=== PATIENT | female | born 1955 | race Caucasian/White ===

== ENCOUNTER 2025-06-19 12:57 | Outpatient (CLI) | payer MEDICARE, SELFPAY | END 2025-06-19 12:58 | disposition home or self-care (01) | LOC: AMB 06-22 17:09 | PROVIDERS: Visit Provider Internal Medicine | DX: R55 Syncope and collapse (principal); R53.1 Weakness; R42 Dizziness and giddiness | CPT/HCPCS: A0425; A0427 ==

== ENCOUNTER 2025-06-19 13:34 | Emergency (ER) | payer MEDICARE, SELFPAY ==
--- OUTSIDE RECORDS SUMMARY | 2018-08-19 03:31 | XMS_ITS | Continuity of Care Document ---
Author Organization [facility] Address [address] [address] [place] [address] Phone Care Team Providers Care Choreography Director Name Role Phone Dayanna Jones CRNA Unavailable Unavailable Allergies, Adverse Reactions, Alerts Substance Reaction Status Criticality No Known Allergies Active No Inform ation Medications Medication Instructions Dosage Effective Dates (start - stop) Status Comments liothyronine 5 mcg tablet take 2 tablet by oral route every day 10 MCG - Active levothyroxine 100 mcg tablet take 1 tablet by oral route every day 100 MCG - Active bupropion HCl SR 200 mg tablet,12 hr sustained-release take 1 tablet by oral route every day 200 MG - Active escitalopram 5 mg tablet take 1 tablet b y oral route every day 5 MG - Active escitalopram 10 mg tablet take 1 tablet by oral route every day 10 MG - Active Multiple Vitamins tablet take 1 tablet b y oral route every day with food - Active vitamin B complex capsule take 1 Capsule by Oral route every day 1 Capsule - Active Vitamin D3 400 unit capsule take 1 Table t by Oral route every day 1 Tablet - Active vitamin E 100 unit capsule take 1 Tablet by Oral route every day - Active Calcium Magnesium 500 mg calcium-250 mg tablet take 1 tablet by oral route every day - Active MiralaxBisacodylMagCit Colon Prep Use as directed - No Longer Active Procedures Procedure Date Colonoscopy Flex; Dx (sep Pro) 19 Advance Directives Directive Yes / No Effective Date File Name No Information Encounters Encounter Description Practice Location Reason(s) For Visit Diagnoses Date Provider Providers Copied on Encounter [facility], [address] [address], [place], [id number], tel:[phone] [facility] No Information 9 Robert ASHLEY Dayanna. [address] [facility], [facility] [address], [place], [id number], [place]. tel:[phone] [facility], [address] [address], [place], [id number], [place] tel:[phone] [facility] Screening ColonoscopyMel anosis coliEncounter for screening for malignant neoplasm of colon 9 No Information Referring Provider: Sbaine Kahn [employer], [facility], [place], [address]. tel:[phone] [facility], [address] [address], [place], [id number], [place] tel:[phone] [facility] No Information 8 Rafi Napoles. [address] [facility] [address], [place], [id number], . tel:[phone] Family History Family Member Type Diagnosis Age At Onset Father Problem (finding) Cancer, unknown Father Problem (finding) Mother Problem (finding) Sister Problem (finding) Alive and well Brother Problem (finding) Brother Problem (finding) Alive and well Payers Payer name Insurance type Covered democrat ID Authoriza tion(s) No Information Social History Type Description Quantity Date Captured Comments Sex Female Smoking Status No Information Chief Complaint And Reason For Visit No Information Reason For Referral Reason For Referral No Information History Of Present Illness Encounter Date Complaint History Of Prese nt Illness No Information Functional Status Date Functional Assessmen t No Information Instructions Date Instruction Additional Infor raul Colon Cancer Prevention Related to Screening Colonoscopy Assessments Type Assessment Date No Information Patient Care Teams Name Effective Dates (start - stop) Status Members No Information
--- OUTSIDE RECORDS SUMMARY | 2025-06-19 13:37 | XMS_ITS | Clinical Summary ---
Author Organization [place] Address [facility] [place] [address] Care Team Providers Care Electrical Construction Project Manager Name Role Phone Sabine Kahn NP Primary Care Provider [phone] Sabine Kahn FREIGHT RECEIVER Unavailable [phone] Malgorzata Valero FREIGHT RECEIVER Unavailable [phone] Allergies No known active allergies Medications MedicationSigDispense QuantityRefillsLast FilledStart DateEnd DateStatus [place]-3 Fatty Acids (FISH OIL CONCENTRATE) 1000 MG CAPS Take 1 tablet by mouth daily05/16/2018Active acetylcysteine (NAC) 600 mg cap capsule Take 1,200 mg by mouth daily05/16/2018Active multivitamin therapeutic (THERAGRAN) tablet Take 1 tablet by mouth daily05/16/2018Active VITAMIN B COMPLEX ORAL Take 1 tablet by mouth daily05/16/2018Active Wvyqltw-Rzqkovlqt-Asetrsj D (CALCIUM MAGNESIUM PO) Take 2 capsules by mouth daily 1000 mg calcium 500 mg MagnesiumActive IBANdronate (BONIVA) 150 MG tablet Indications:Osteopenia of left hipTake 1 tablet (150 mg) by mouth every 30 days. 3 tablet 5Active escitalopram (LEXAPRO) 10 MG tablet Indications:Mild episode of recurrent major depressive disorderTake 1.5 tablets (15 mg) by mouth daily. 135 tablet 5Active buPROPion (WELLBUTRIN SR) 100 MG 12 hr tablet Indications:Mild episode of recurrent major depressive disorderTake 1 tablet (100 mg) by mouth 2 times daily. 180 tablet 5Active liothyronine (CYTOMEL) 5 MCG tablet Indications:Mild episode of recurrent major depressive disorderTake 2 tablets (10 mcg) by mouth daily. DUE FOR LABS 180 tablet 5Active levothyroxine (SYNTHROID/LEVOTHROID) 100 MCG tablet Indications:Hypothyroidism, unspecified typeTake one tablet 5 days a week and skip 2 days per week (Sunday and Sunday) 60 tablet 5Active Active Problems ProblemNoted DateDiagnosed DateClosed fracture of right distal zgofsd6202/02/2023 Osteopenia of multiple sites02/02/2023Major depressive disorder, recurrent wrystrj5605/16/2018 Overview (12/31/2020): Overview: [facility] Dysthymic fkxsiszb45/21/2007 Overview (12/31/2020): Overview: Wellbutrin, Lexapro and supplements: SAME, NAC, and roseola Tried: Fluoxetine- ineffective, citalopram- lost effectiveness, paroxetine- ineffective Last Assessment & Plan: Wellbutrin, Lexapro and supplements: SAME, NAC, and roseola Dysthymia. She feels that she is well controlled currently. It took her years to get to the right dosage. No hospitalizations. No SI or HI. She is already set up with counseling. Last year was unemployed most of the year. Moved here ( family in the area) and has been able to get a job. Yegwzhrcqntcxq20/08/2004 Overview (12/31/2020): Overview: Dx about 1979. Symptoms controlled only with combination L thyroxine and Cytomel. Last Assessment & Plan: Dx about 1979. Symptoms controlled only with combination L thyroxine and Cytomel. Has not changed her thyroid dosing in 2 years. Lab Results Component Value Date TSH 0.31 08/19/2013 Overview: [facility] Resolved Problems ProblemNoted DateDiagnosed DateResolved DateCervical cancer ncaqqjegl28/31/2018 04/18/2021 Overview (02/04/2021): From visit on 11/21/17: History of abnormal pap tests? No 2007 NILM 2010 NILM 2018 NILM ,neg HPV 62 y.o. Plan: Cotesting 10/2020 Healthcare chalnwnxvsy38 Overview (02/04/2021): Last Assessment & Plan: Pap: 2011- no hx abn Mammo: 10/2013- category 1 Cholesterol: Not recently Glucose: Not recently Colonoscopy: 12/2011- normal and no increased risk Dexa: Done in the past Immunizations: Not sure. Will await old records. Diet: She is a vegetarian. She is careful with her diet. Fast food: Rarely, sugared beverages: None. Has an aversion to sugar as it makes her tired. Exercise: 3 times per week. Swims laps for 30 minutes. Inj muscle, fascia and tendon of triceps, left arm, init Overview (12/31/2020): Overview: 09/08/2013- slipped while hiking Last Assessment & Plan: 09/08/2013- slipped while hiking Slowly improving. Saw Rl Syed for this. Posterior subcapsular polar senile kgeunytl71 Encounters DateTypeDepartmentCare RbuvOhbyogyftqo03/04/2025MyC Refill M [address] [address] Malgorzata Valero NP Refill Ktxtjll5303/24/2025MyC Medical Advice M [address] [address] Cheryl Padilla MA from Last 3 Months Immunizations ImmunizationAdministration DatesNext DueCOVID-19 12+ (Pfizer)5COVID-19 Monovalent 18+ (Moderna)2COVID-19 Vaccine (Horacio)1Cholera, unspecified vonmighzixm87/01/1993DT (PEDS <7y)01/27/1993Flu, Unspecified 06/30/1998,05/05/1997,03/24/1996Influenza (High Dose) Trivalent,PF (Fluzone) 04/11/2024,03/17/2020Influenza (IIV3) PF03/28/2012,04/25/2011,04/01/2010, 03/18/2009,05/21/2007,05/29/2003Influenza (prior to 2023)04/27/2014Influenza Vaccine 65+ (Fluzone HD)04/10/2023,04/13/2022,04/11/2021Influenza Vaccine >6 months,quad, PF04/23/2017Influenza Vaccine, 6+MO IM (QUADRIVALENT W/PRESERVATIVES)03/27/2018Meningococcal (Menomune??)02/01/1994Pneumococcal 20 valent Conjugate (Prevnar 20)4Pneumococcal 23 phfxsy5409/09/2021, 03/24/1996Poliovirus, inactivated (IPV)06/17/1993TDAP (Adacel,Boostrix) 12/14/2014,09/06/2009Td (Adult), Sugijrjt37/07/2004,01/27/1993Typhoid IM 02/23/1994Zoster recombinant adjuvanted (Shingrix)01/03/2022,10/08/2021 Family History Medical HistoryRelationCommentsParkinsonismBrotherThroat cancerFatherRelation StatusCommentsBrotherDeceasedFatherDeceasedMotherDeceased Social History Tobacco UseTypesPacks/DayYears UsedDateSmoking Tobacco: NeverSmokeless Tobacco: NeverAlcohol UseStandard Drinks/WeekCommentsYes0 (1 standard drink = 0.6 oz pure alcohol)1 / monthSocial Connection and Isolation PanelAnswerDate Recorded Frequency of Communication with Friends and FamilyNot on file10/02/2024How often do you get together with friends or relatives?Twice a week5Attends Presybeterian ServicesNot on file5Active Member of Clubs or Organizations Not on file10/02/2024ttends Club or Organization MeetingsNot on file10/02/2024 Marital StatusNot on file10/02/2024PHQ-2AnswerDate RecordedPHQ-2 Score2 10/03/2024[facility] Occupational Health - Occupational Stress QuestionnaireAnswerDate RecordedDo you feel stress - tense, restless, nervous, or anxious, or unable to sleep at night because yourmind is troubled all the time - these days?Only a wntrnr6910/02/2024Exercise Vital SignAnswerDate Recorded On average, how many days per week do you engage in moderate to strenuous exercise (like a brisk walk)?4 days10/02/2024On average, how many minutes do you engage in exercise at this level?40 min10/02/2024dolescent EducationAnswerDate RecordedGetting School Help NeededNot on file04/17/2023Food InsecurityAnswerDate RecordedWithin the past 12 months, did you worry that your food would run out before you got money to buy more?No10/02/2024Within the past 12 months, did the food you bought just not last and you didn???t have money to getmore?No 10/02/2024Housing StabilityAnswerDate RecordedDo you have housing? (Housing is defined as stable permanent housing and does not include staying outside in a car, in a tent, in an abandoned building, in an overnight care home, or couch-surfing.)Yes10/02/2024re you worried about losing your housing?No 10/02/2024Financial Resource StrainAnswerDate RecordedWithin the past 12 months, have you or your family members you live with been unable to get utilities (heat, electricity) when it was really needed?No10/02/2024Transportation Needs AnswerDate RecordedWithin the past 12 months, has lack of transportation kept you from medical appointments, getting your medicines, non-medical meetings or appointments, work, or from getting things that you need?No10/02/2024 Interpersonal SafetyAnswerDate RecordedDo you feel physically and emotionally safe where you currently live?Yes10/03/2024Within the past 12 months, have you been hit, slapped, kicked or otherwise physically hurt by someone?No10/03/2024 Within the past 12 months, have you been humiliated or emotionally abused in other ways by your partner or ex-partner?No10/03/2024CommentsNoSex and Gender InformationValueDate RecordedSex Assigned at LxwvrFgkojv87/27/2021 3:47 PM CDTLegal JoiLbvnci32/04/2012 4:22 AM CSTGender CwdnbhcgSdcmem49/27/2021 3:47 PM CDTSexual KsklzwizbcbAjvltnoj90/21/2021 11:07 AM CDT Last Filed Vital Signs Vital SignReadingTime TakenCommentsBlood Pmayabvh56/6008 7:20 AM CDT Kdpgr884602/25/2025 7:20 AM HRRXjvsnftvucd66.9 ??C (98.4 ??F)10/03/2024 9:26 AM CDTRespiratory Ttsc444510/03/2024 9:26 AM CDTOxygen Oizoewkzxk61%02/25/2025 7:20 AM CDTInhaled Oxygen Concentration--Tztlef25.8 kg (109 lb 12.8 oz)02/25/2025 7:20 AM CDTpt had her shoes jhSvccdg117.9 cm (5' 4.13)02/25/2025 7:20 AM CDTpt had her shoes onBody Mass Index18.7708 7:20 AM CDT Plan of Treatment DateTypeDepartmentCare Team (Latest Contact Info)Acscmgzojkd46/08/2026 9:30 AM CDTOffice Visit [address] [phone] Sabine Kahn NP [address] [place] [address] [address] [place] [id number] 02/19/2026 10:30 AM CDTLab [facility] [place] [address] 02/26/2026 11:30 AM CDTVirtual Visit [facility] [address] [place] [phone] Malgorzata Valero NP [phone] [place] [address] Health MaintenanceDue DateLast DoneCommentsCT NPCORHKYNLTA88/10/1956DEPRESSION ACTION PLAN1955FIT1955FLEX SIG1955sDNA (Cologuard)1955 COVID-19 VACCINE ( season), 03/21/2024, 05/14/2023, Additional history existsINFLUENZA VACCINE (#1), 04/10/2023, 04/13/2022, Additional history existsPHQ-91/09/2024, 10/03/2023, 02/02/2023, Additional history existsANNUAL REVIEW OF HM ORDERS /09/2024, 02/02/2023, 09/09/2021FALL RISK RXXBFTIHJI46/04/2026 10/03/2024, 10/03/2023, 02/02/2023, Additional history existsMEDICARE ANNUAL WELLNESS VISIT/09/2024, 10/03/2023, 09/04/2022, Additional history existsTSH W/FREE T4 IDQYMA72/, 02/19/2025, 01/14/2025, Additional history existsMAMMO SJXPYAIMF09/, 10/03/2023, 09/11/2022, Additional history existsDIABETES OYUOXMCRZ87/09/2024, 01/25/2024, 10/03/2023, Additional history lshgbfODZYUZLKIRO64/18/202902/ COLORECTAL CANCER QMMTNDFUN99/18/2029RSV VACCINE (1 - 1-dose 75+ series) 2029ADVANCE CARE ACQXPWLW44/09/2024, 10/03/2023, 09/09/2021, Additional history hgadjbEMXJQ86/04/203004/09/2024, 10/03/2023, 01/20/2022 DTAP/TDAP/TD VACCINE (4 - Td or Tdap), 12/14/2014, 09/06/2009, Additional history zrztgaVCTF40, 09/11/2022, 08/07/2018, Additional history existsMENINGITIS VACCINEAged Out02/01/1994No longer eligible based on patient's age to complete this topicZOSTER VACCINE Qifpqqjjt21/05/2022, 10/08/2021HEPATITIS C NRXWTUKOWIxcdeqxum84/22/2022, 11/05/2013PNEUMOCOCCAL VACCINE 50+ KOGRUEwzibpjzu43/03/2024, 09/09/2021, 03/24/1996HPV VACCINE (No Doses Required)Completed Medical Devices ImplantedTypeAreaManufacturerDevice IdentifierShelf Expiration DateModel / Serial / LotImp Scr Syn Can 4.0x38mm Short Ss 207.638 - [id number] Implanted:Qty: 1 on 04/21/2021 [facility]AnchorLeft: KneeSYNTHES-STRATEC 207.638 / / NAImp Scr Syn Can 4.0x40mm Short Ss 207.640 - [id number] Implanted:Qty: 1 on 04/21/2021 by [facility]ill [facility]/AnchorLeft: KneeSYNTHES-STRATEC 207.640 / / NAImp Washer Syn Can Sm 7.0mm 219.98 - [id number] Implanted:Qty: 2 on 04/21/2021 by [facility]ill [facility]/AnchorLeft: KneeSYNTHES-STRATEC 219.98 / / NAWire Surgical Steel 18ga Ds-18 - [id number] Implanted:Qty: 2 on 04/21/2021 by Antonio [facility]ill MD at [facility]: [facility]-DS18 / / NA Procedures Procedure NamePriorityDate/TimeAssociated DiagnosisCommentsT4 FREERoutine 02/19/2025 10:25 AM CDT Hypothyroidism, unspecified type MA SCREENING BILATERAL W/ HMPTNwvzhen95/14/2025 9:42 AM CDT Encounter for screening mammogram for breast cancer BASIC METABOLIC OKJITJnurmqg31/04/2025 9:58 AM CDT Screening for diabetes mellitus LIPID REFLEX TO DIRECT LDL HCWXOTsecqxu75/04/2025 9:58 AM CDT Screening for lipid disorders HEPATITIS C FDKDQPQEDhuxkga54/22/2022 7:26 AM CDT Need for hepatitis C screening test COLONOSCOPY - HIM SCAN08/19/2018DX BONE VNIHLGUNlbmthn57/06/2019 7:48 AM BAND BUILDER Hypothyroidism, unspecified Asymptomatic menopausal state from Last 3 Months or Most Recently Relevant to Health Maintenance Results * T4 free (02/19/2025 10:25 AM CDT)ComponentValueRef RangeTest MethodAnalysis TimePerformed AtPathologist SignatureFree T41.020.90 - 1.70 ng/dL02/19/2025 4:17 PM CDTUU LABORATORYSpecimen (Source)Anatomical Location / Laterality Collection Method / VolumeCollection TimeReceived TimeBloodBLOOD SPECIMEN / UnknownVenipuncture / Voqusua5102/19/2025 10:25 AM CDT02/19/2025 10:25 AM CDT Narrative Authorizing ProviderResult TypeResult StatusRebecca Kaehr NPLAB - BLOOD ORDERABLESFinal ResultPerforming OrganizationAddressCity/State/ZIP CodePhone Number UU LABORATORY [facility] [place] [facility] [address] [facility], [address] [place] [phone] * [place] Screen Bilateral w/Carlos (10/13/2024 9:42 AM CDT)Anatomical RegionLaterality ModalityBreastBilateralMammographySpecimen (Source)Anatomical Location / LateralityCollection Method / VolumeCollection TimeReceived Time Impressions 10/13/2024 5:08 PM CDT IMPRESSION: ACR BI-RADS Category 1: Negative BREAST CANCER SCREENING RECOMMENDATION: Routine yearly mammography beginning at age 40 or as discussed with your provider. The results and recommendations of this examination will be communicated to the patient. Shasha Jeter MD Narrative 10/13/2024 5:08 PM CDT BILATERAL FULL FIELD DIGITAL SCREENING MAMMOGRAM WITH TOMOSYNTHESIS Performed on: 10/13/24 Compared to: 10/03/2023, 09/11/2022, and 01/20/2022 Technique: ??This study was evaluated with the assistance of Computer-Aided Detection. ??Breast Tomosynthesis was used in interpretation. Findings: There are scattered areas of fibroglandular density. ??There is no radiographic evidence of malignancy. Authorizing ProviderResult TypeResult StatusAbby [facility] NPIMG MAMMOGRAPHY ORDERABLESFinal Result * Lipid panel reflex to direct LDL Non-fasting (10/03/2024 9:58 AM CDT)Component ValueRef RangeTest MethodAnalysis TimePerformed AtPathologist Signature Foqfegudijc746<200 mg/dL10/03/2024 2:58 PM CDTUU AZTJHTOOQYPchwowamkmhfu617 <150 mg/dL10/03/2024 2:58 PM CDTUU LABORATORYDirect Measure HDL85>=50 mg/dL 10/03/2024 2:58 PM CDTUU LABORATORYLDL Cholesterol Yucedqooem43<100 mg/dL 10/03/2024 2:58 PM CDTUU LABORATORYNon HDL Pqmdxkvihgo22<130 mg/dL10/03/2024 2:58 PM CDTUU LABORATORYPatient Fasting > 8hrs?Yes10/03/2024 2:58 PM CDTUU LABORATORYSpecimen (Source)Anatomical Location / LateralityCollection Method / VolumeCollection TimeReceived TimeBloodBLOOD SPECIMEN / UnknownVenipuncture / Jqkefpp1310/03/2024 9:58 AM CDT10/03/2024 9:58 AM CDT Narrative [facility] - 10/03/2024 2:58 PM CDT Cholesterol Desirable: < 200 mg/dL Borderline High: 200 - 239 mg/dL High: >= 240 mg/dL Triglycerides Normal: < 150 mg/dL Borderline High: 150 - 199 mg/dL High: 200-499 mg/dL Very High: >= 500 mg/dL Direct Measure HDL Female: >= 50 mg/dL Male: >= 40 mg/dL LDL Cholesterol Desirable: < 100 mg/dL Above Desirable: 100 - 129 mg/dL Borderline High: 130 - 159 mg/dL High: ??160 - 189 mg/dL Very High: >= 190 mg/dL Non HDL Cholesterol Desirable: < 130 mg/dL Above Desirable: 130 - 159 mg/dL Borderline High: 160 - 189 mg/dL High: 190 - 219 mg/dL Very High: >= 220 mg/dL Authorizing ProviderResult TypeResult StatusAbby Wagstrmary NPLAB - BLOOD ORDERABLESFinal ResultPerforming OrganizationAddressCity/State/ZIP CodePhone Number U LABORATORY [facility] [address] [facility], [address] [place] [address] * Basic metabolic panel (10/03/2024 9:58 AM CDT)ComponentValueRef RangeTest MethodAnalysis TimePerformed AtPathologist MbapptiapPnzebk176504 - 145 mmol/L 10/03/2024 2:58 PM CDTUU LABORATORYPotassium4.63.4 - 5.3 mmol/L10/03/2024 2:58 PM CDTUU DSHPGHLTCWTsrhsnnt83638 - 107 mmol/L10/03/2024 2:58 PM CDTUU LABORATORYCarbon Dioxide (CO2)2622 - 29 mmol/L10/03/2024 2:58 PM CDTUU LABORATORYAnion Eiq882 - 15 mmol/L10/03/2024 2:58 PM CDTUU LABORATORYUrea Coxrmrkn25.88.0 - 23.0 mg/dL10/03/2024 2:58 PM CDTUU LABORATORYCreatinine0.92 0.51 - 0.95 mg/dL10/03/2024 2:58 PM CDTUU LABORATORYGFR Sieaeytp64>60 mL/min/1.64q78110/03/2024 2:58 PM CDTUU LABORATORYComment:eGFR calculated using 2020 CKD-EPI equation.Calcium9.48.8 - 10.4 mg/dL10/03/2024 2:58 PM CDTUU UJRLJZPNOMRrggvao4672 - 99 mg/dL10/03/2024 2:58 PM CDTUU LABORATORYPatient Fasting > 8hrs?Yes10/03/2024 2:58 PM CDTUU LABORATORYSpecimen (Source) Anatomical Location / LateralityCollection Method / VolumeCollection Time Received TimeBloodBLOOD SPECIMEN / UnknownVenipuncture / Xkfiwvc4910/03/2024 9:58 AM CDT10/03/2024 9:58 AM CDT Narrative Authorizing ProviderResult TypeResult StatusAbby Wagstrom NPLAB - BLOOD ORDERABLESFinal ResultPerforming OrganizationAddressCity/State/ZIP CodePhone Number LABORATORY [facility] [place] [facility] [address] [facility], [address] [address], [place] * Hepatitis C antibody (01/20/2022 7:26 AM CDT)ComponentValueRef RangeTest MethodAnalysis TimePerformed AtPathologist SignatureHepatitis C Antibody VlrnixtqfumChaeyzvjpxx12/22/2022 5:44 PM CDTUM SPECIALTY CORE/PROT/ENDO Specimen (Source)Anatomical Location / LateralityCollection Method / Volume Collection TimeReceived TimeBloodVENOUS STRUCTURE / UnknownVenipuncture / Lfjsuoc7101/20/2022 7:26 AM CDT01/20/2022 7:27 AM CDT Narrative SPECIALTY CORE/PROT/ENDO - 01/20/2022 5:44 PM CDT Assay performance characteristics have not been established for newborns, infants, and children. Authorizing ProviderResult TypeResult StatusAbby Wagstrom NPLAB - BLOOD ORDERABLESFinal ResultPerforming OrganizationAddressCity/State/ZIP CodePhone Number SPECIALTY CORE/PROT/ENDO Specialty Core/Prot/Endo [address] [facility], [address] [phone] * COLONOSCOPY - HIM SCAN (08/19/2018) Narrative Authorizing ProviderResult TypeResult StatusHistorical ProviderPROCEDURESFinal Result * DX Hip/Pelvis/Spine (08/07/2018 7:48 AM BAND BUILDER)Anatomical RegionLaterality ModalityDexaOtherSpecimen (Source)Anatomical Location / LateralityCollection Method / VolumeCollection TimeReceived Time Narrative 08/13/2018 6:58 AM BAND BUILDER 08/07/2018 RE: Love Tang Date of : 1955 Dear Malgorzata Valero, Patient Profile: 62 y.o. female, postmenopausal, is here for the first bone density test. History of fractures ??? Yes; ??Wrist. Family history of osteoporosis - None. ??Family history of hip fracture: None. Smoking history - No. Osteoporosis treatment past ?No. Osteoporosis treatment current ??? No. ??Chronic medical problems - None. High risk medications ?Thyroid; ??Yes, Currently. Assessment: 1. The spine bone density L1-L3 with T-score -1.5. 2. Femoral bone densities show left femoral neck T- score -1.7 and right femoral neck T-score -1.7. 3. Trabecular bone score indicates moderate trabecular bone architecture. 62 y.o. female with LOW BONE DENSITY (OSTEOPENIA) and MODERATE fracture risk, adjusted for the TBS,with major osteoporotic fracture risk 8.8 % and hip fracture risk 1.1 %. Recommendations: Appropriate calcium, vitamin D supplements, along with balance and weight bearing exercise, are recommended with follow up bone density scan in 2 years. Bone densitometry was performed on your patient using our Famigo densitometer. The results are summarized and a copy of the actual scans are included for your review. In conformity with the International Society of Clinical Densitometry's most recent position statement for DXA interpretation (2015), the diagnosis will be made on the lowest measured T-score of the lumbar spine, femoral neck, total proximal femur or 33% radius. Note the change in terminology for diagnostic classification from OSTEOPENIA to LOW BONE MASS. All trending for sequential exams will be done using multiple vertebrae or the total proximal femur. Fracture risk is based on the WHO Fracture Risk Assessment Tool (FRAX). If additional information is needed or if you would like to discuss the results, please do not hesitate to call me. Thank you for referring this patient to [facility]. We are happy to be of service in support of you and your practice. If you have any questions or suggestions to improve our service, please call me at [phone]. Sincerely, Brook Moses M.D. BolivarCLacey. Osteoporosis Services, [facility] Procedure Note Brook Moses MD - 12/08/2020 08/07/2018 RE: Love Tang Date of : 1955 Dear Malgorzata Valero, Patient Profile: 62 y.o. female, postmenopausal, is here for the first bone density test. History of fractures ??? Yes; Wrist. Family history of osteoporosis - None. Family history of hip fracture: None. Smoking history - No. Osteoporosis treatment past ??? No. Osteoporosis treatment current ??? No. Chronicmedical problems - None. High risk medications ??? Thyroid; Yes, Currently. Assessment: 1. The spine bone density L1-L3 with T-score -1.5. 2. Femoral bone densities show left femoral neck T- score -1.7 and rightfemoral neck T-score -1.7. 3. Trabecular bone score indicates moderate trabecular bonearchitecture. 62 y.o. female with LOW BONE DENSITY (OSTEOPENIA) and MODERATE fracturerisk, adjusted for the TBS, with major osteoporotic fracture risk 8.8 %and hip fracture risk 1.1 %. Recommendations: Appropriate calcium, vitamin D supplements, along with balance and weightbearing exercise, are recommended with follow up bone density scan in 2years. Bone densitometry was performed on your patient using our Famigo densitometer. The results are summarized and a copy of the actual scansare included for your review. In conformity with the International Societyof Clinical Densitometry's most recent position statement for DXA interpretation (2015), the diagnosiswill be made on the lowest measured T-score of the lumbar spine, femoralneck, total proximal femur or 33% radius. Note the change in terminologyfor diagnostic classification from OSTEOPENIA to LOW BONE MASS. All trending for sequential exams will bedone using multiple vertebrae or the total proximal femur. Fracture riskis based on the WHO Fracture Risk Assessment Tool (FRAX). If additionalinformation is needed or if you would like to discuss the results, please do not hesitate to call me. Thank you for referring this patient to [facility].We are happy to be of service in support of you and your practice. If youhave any questions or suggestions to improve our service, please call [facility] [phone]. Sincerely, Ermias Coleman. Osteoporosis Services, [facility] Authorizing ProviderResult TypeResult StatusRebecca Kaehr NPIMG DEXA ORDERABLES Final Result from Last 3 Months or Most Recently Relevant to Health Maintenance Insurance * Guarantor: Love Tang TypeRelation to PatientDate of BirthPhone Billing AddressPersonal/SdukacPuzg[birth year][address] [address] Care Teams Team MemberRelationshipSpecialtyStart DateEnd Date Sabine Kahn NP [address] [place] [address] PCP - GeneralFamily Practice2/1/19 Sabine Kahn NP [address] [place] [address] Assigned PCP09/18/21 Malgorzata Valero NP [address] [address] Nurse PractitionerEndocrinology, Diabetes, and Metabolism02/27/25
--- OUTSIDE RECORDS SUMMARY | 2025-06-19 13:37 | XMS_ITS | Clinical Summary ---
Author Organization [employer] [facility] Address [address] [place] [address] Care Team Providers Care Telecommunications Manager Name Role Phone Kathy Desai MD Primary Care Provider Allergies No known active allergies Medications MedicationSigDispense QuantityRefillsLast FilledStart DateEnd DateStatus CYTOMEL 5 MCG TAB Indications:Dysthymic disorderTake 5 mcg by mouth once daily.ctive LEXAPRO 10 MG TAB Indications:Dysthymic disordertake 1 tablet (10mg) by oral route once daily0 11/19/2006ctive levothyroxine (SYNTHROID) 100 mcg tablet Take 100 mcg by mouth.01/30/2020Active buPROPion (WELLBUTRIN SR) 100 mg Sustained-Release tablet Take 1 Tablet by mouth two times daily.02/05/2020Active durable medical equipment (DME) Indications:Aftercare following surgery of the musculoskeletal systemComfort form wrist right xr [id number] 1 Each 08/30/2022ctive Active Problems ProblemNoted DateDiagnosed DateMajor depressive disorder, recurrent episode 05/16/2018 Overview (08/05/2022): [facility]: [facility] Cervical cancer inbdyhaac66/31/2018 Overview (08/05/2022): From visit on 11/21/17: History of abnormal pap tests? No 2007 NILM 2010 NILM 2018 NILM ,neg HPV 62 y.o. Plan: Cotesting 10/2020 Healthcare xzxmotbxdxa63/07/2014 Overview (08/05/2022): Last Assessment & Plan: Pap: 2011- no [...] fascia and tendon of triceps, left arm, init09/12/2013 Overview (08/05/2022): Overview: 09/08/2013- slipped while hiking Last Assessment & Plan: 09/08/2013- slipped while hiking Slowly improving. Saw Rl Syed for this. 09/08/2013- slipped while hiking Last Assessment & Plan: 09/08/2013- slipped while hiking Slowly improving. Saw Rl Syed for this. Dysthymic ihqpueyh03/21/2007Unspecified hqndlnbqcyzdrs82/21/2007Posterior subcapsular polar senile imdwnmhw68/02/2005Closed fracture of right distal radius Immunizations ImmunizationAdministration DatesNext DueCOVID-19 vaccine (Horacio-J&J) PF, MDV 1COVID-19 vaccine (Moderna 100mcg/0.5mL) PF, MDV2COVID-19 vaccine (Moderna 50mcg/0.5mL) 12YO+ BIVALENT PF, MDV2Cholera (Injectable)06/01/1993DT (Age < 7 years)01/27/1993Inactivated Polio Vaccine 06/17/1993Influenza, High-dose Quadrivalent Gxieiqqmnkr98/13/2022,04/11/2021 Meningococcal Vaccine (Menomune)02/01/1994Pneumococcal Poly,23-Valent (Pneumovax)09/09/2021,03/24/1996Td (Age >=7 Years)04/07/2004,01/27/1993Tdap 12/14/2014,09/06/2009Typhoid (injectable)02/23/1994Zoster (Shingrix-RZV, recombinant)01/03/2022,10/08/2021 Family History Medical HistoryRelationNameCommentsCoronary artery diseaseBrother 1Dementia Brother 2Lung diseaseFatherHeart DiseaseMotherAlcohol/DrugPaternal Uncle Cancer-breastNo Family HistoryRelationNameStatusCommentsBrother 1Brother 2 DeceasedFatherDeceasedMotherDeceasedPaternal Uncle Social History Tobacco UseTypesPacks/DayYears UsedDateSmoking Tobacco: NeverSmokeless Tobacco: Never Tobacco Cessation:Counseling Given: Not Answered Alcohol UseStandard Drinks/WeekCommentsYes1.7 (1 standard drink = 0.6 oz pure alcohol)PHQ-2AnswerDate RecordedPHQ-2 TOTAL [id number] Connections AnswerDate RecordedFrequency of Communication with Friends and FamilyNot on file 09/09/2023Financial Resource StrainAnswerDate RecordedDifficulty of Paying Living Jacwfmhu630/06/2023Difficulty of Paying Living ExpensesNot on file 09/04/2022Food InsecurityAnswerDate RecordedWorried About Running Out of Food in the Last Lmny253Transportation NeedsAnswerDate RecordedLack of Transportation (Medical)Housing StabilityAnswerDate RecordedUnable to Pay for Housing in the Last Tflq3983CommentsNoSex and Gender InformationValueDate RecordedSex Assigned at BirthNot on fileLegal SexFemale 07/15/2012 6:23 AM CSTGender IdentityNot on fileSexual OrientationNot on file Last Filed Vital Signs Vital SignReadingTime TakenCommentsBlood Llahbjhc56/6203 2:40 PM SERVICES COORDINATOR Ovdld0901 2:40 PM IAJXoacenfkwkl28.8 ??C (98.2 ??F)08/15/2022 4:05 PM CSTRespiratory Zuwe397608/15/2022 4:05 PM CSTOxygen Ktmfllanjp44%09/04/2022 2:40 PM CSTInhaled Oxygen Concentration--Uatarm87.1 kg (114 lb 12.8 oz)09/04/2022 2:40 PM XIHMpfklf383.3 cm (5' 3.5)09/04/2022 2:40 PM CSTBody Mass Index20.02 09/04/2022 2:40 PM SERVICES COORDINATOR Plan of Treatment Health MaintenanceDue DateLast DoneCommentsRSV vaccine for adults or (1 - Risk 50-74 years 1-dose series)2004Pneumococcal series for age 50+ (2 of 2 - PCV)/05/2022, 03/24/1996BMI (ht and wt on same day) for age 18+/11/2022Medicare Wellness for age 65+/11/2022 Depression screening for age 12+/03/2023, 09/04/2022Mammogram for age 45-/Tetanus dxqyjbe49/, 09/06/2009, 04/07/2004, Additional history existsCOVID-19 vaccine series (2024- season)/, 12/12/2021, 05/05/2021, Additional history exists Influenza Vaccine (#1)2025Lipids for age 45- (Verified in Care Everywhere or Patient Record)Colonoscopy through age 75 (Completed outside of [facility])Zoster (shingles) series for age 50+Sjapevkqu23/05/2022, 10/08/2021Hepatitis C screening for age 18-79 Sxwqvddst94/22/2022 (Verified in Care Everywhere or Patient Record)Overridden with the intention of not completing the topicDEXA/DXA scan for age 65+Completed 02/12/2024, 09/11/2022Hepatitis B series for 19+Aged OutNo longer eligible based on patient's age to complete this topic Medical Devices ImplantedTypeAreaManufacturerDevice IdentifierShelf Expiration DateModel / Serial / LotPlate Distal Rt Volar Shrt - [id number] Implanted:Qty: 1 on 08/15/2022 by Rl Winters MD at [facility] Right: Wrist[employer]immer [id number] / / Description:LOAD NO. 4 6 08/01/22Peg Hand 2.5x18mm Alps Full Thread - [id number] Implanted:Qty: 2 on 08/15/2022 by Rl Winters MD at [facility] Right: [employer] [id number] / / Description:LOAD NO. 4 6 08/01/22Peg Hand 2.5x20mm Alps Full Thread - [id number] Implanted:Qty: 3 on 08/15/2022 by Rl Winetrs MD at [facility] Right: Wrist[employer]immer [id number] / / Description:LOAD NO. 4 6 08/01/22Screw Sm Joint 3.5x12mm Dvr Kaveh - [id number] Implanted:Qty: 1 on 08/15/2022 by Rl Winters MD at [facility] Right: Wrist[employer]immer [id number] / / Description:LOAD NO. 4 6 08/01/22Screw Sm Joint 3.5x15mm Dvr Kaveh - [id number] Implanted:Qty: 1 on 08/15/2022 by Rl Winters MD at [facility] Right: [employer]rist[employer]immer [id number] / / Description:LOAD NO. 4 6 08/01/22Screw Sm Joint 3.5x14mm Dvr Kaveh - [id number] Implanted:Qty: 1 on 08/15/2022 by Rl Winters MD at [facility] Right: [employer]rist[employer]immer [id number] / / Description:LOAD NO. 4 6 08/01/22Peg Hand 2.5x22mm Alps Full Thread - [id number] Implanted:Qty: 2 on 08/15/2022 by Rl Winters MD at [facility] Right: WristHugommer [id number] / / Description:LOAD NO. 4 6 08/01/22ExplantedTypeAreaManufacturerDevice Identifier Shelf Expiration DateModel / Serial / Nicolle Argueta Ss 062 - [id number] [facility] [employer] [id number] / / Description:LOAD NO. 4 6 08/01/22Screw Sm Joint 3.5x16mm Dvr Kaveh - [id number] [facility]ed:Qty[facility] [employer] [id number] / / Description:LOAD NO. 4 6 08/01/22 Procedures Procedure NamePriorityDate/TimeAssociated DiagnosisCommentsXR DXA BONE DENSITY 2 SITES IECYJXnnntpt31/13/2024 9:07 AM CDT Osteopenia of left hip Post-menopausal XR MAMMO BILAT RYYWVUMUVYewnkto13/13/2023 4:01 PM CDT Visit for screening mammogram from Last 3 Months or Most Recently Relevant to Health Maintenance Results * (ABNORMAL) XR DXA BONE DENSITY 2 SITES AXIAL (02/12/2024 9:07 AM CDT) Anatomical RegionLateralityModalitySpine, HIPS, HIPL, HIPROtherSpecimen (Source)Anatomical Location / LateralityCollection Method / VolumeCollection TimeReceived Time Impressions 02/12/2024 3:20 PM CDT Osteopenia. Due to the stability of the bone density, continue present medication if indicated. RECOMMENDATIONS: The National Osteoporosis Foundation recommends pharmacologic treatment for patients with T-scores of -2.5 or less, patients with prior history of fragility fractures, or patients with 10-year probability of greater than 3% at hips or greater than 20% of suffering major osteoporotic fractures. Recommend continued optimization of calcium and vitamin D intake through dietary means and/or supplementation and regular exercise. Continue current Ibandronate (Boniva) medication treatment. Consider a drug holiday from bisphosphonates if indicated. Rhiannon Navarro PA-C [facility] 02/12/2024 ?? Narrative 02/12/2024 3:20 PM CDT For Patients: Results are automatically released to your [facility] ([email or web address]) account once available, in compliance with federal regulations. This means that you may see your results before your provider has had a chance to review them. Please allow 2-3 business days for your provider to comment on the results. XR DXA Bone Mineral Density (BMD) EXAM LOCATION: [facility] [address] [facility] [address] PATIENT NAME: Love Tang DATE OF : 1955 EXAM DATE: 02/12/2024 REQUESTING PROVIDER: Malgorzata Valero NP GENDER AT : female HEIGHT: 5' 3.5 (09/04/2022) WEIGHT: ??114 lb 12.8 oz (09/04/2022) MENOPAUSAL STATUS: Postmenopausal RACE/ETHNICITY: White RISK FACTORS: Weight < 127 lbs. and White Race CURRENT MEDICATION FOR BONE LOSS: Ibandronate (Boniva) INDICATION: Follow-up of existing osteopenia, Follow-up of pharmacologic treatment, and Post-Menopause COMPARISON DATE(S): 2022 DXA scans are compared to prior studies for a patient only when the two (or more) studies were performed on the same scanner. It is not possible to compare data generated on one scanner to data from another because there are not standards in DXA equipment. This applies even if the two scanners are made by the same surgical instrument repair specialist. PROCEDURE: Dual-energy x-ray absorptiometry performed with routine technique. Reporting is completed in the form of a T-score. The T-score represents the standard deviation from peak bone mass based on young healthy adult. A Z-score is used for diagnosis in premenopausal women, and for men under the age of 50. FINDINGS: RESULT LUMBAR SPINE L1 - L4 BMD: 1.057 g/cm2 T-Score: - 1.1 Z-Score: + 1.0 Change from prior in 2022: ??Increase 3.2%. RESULTS FEMUR Left femoral neck BMD: 0.796 g/cm2 T-Score: - 1.7 Z-Score: + 0.2 Change from prior in 2022: ??Increase 5.0%. Right femoral neck BMD: 0.802 g/cm2 T-Score: - 1.7 Z-Score: + 0.2 Change from prior in 2022: ??Increase 3.8%. Left hip BMD: 0.773 g/cm2 T-Score: - 1.9 Z-Score: - 0.1 Change from prior in 2022: ??Increase 2.1%. Right hip BMD: 0.806 g/cm2 T-Score: - 1.6 Z-Score: + 0.1 Change from prior in 2022: ??Increase 4.7%. WHO criteria: Normal: T-score at or above -1 SD Osteopenia: T-score between -1.1 and -2.4 SD Osteoporosis: T-score at or below -2.5 SD Authorizing ProviderResult TypeResult StatusRebeccelina Valero NPDEXAFinal Result * XR MAMMO BILAT SCREENING [[id number]] (09/11/2022 4:01 PM CDT)Anatomical Region LateralityModalityBREASTS, Breast Left, Breast RightBilateralMammography Specimen (Source)Anatomical Location / LateralityCollection Method / Volume Collection TimeReceived Time Impressions 09/18/2022 3:00 PM CDT There is no radiographic evidence for malignancy. Recommend annual mammograms. MAMMOGRAM ASSESSMENT: ??ACR 1 Negative PATIENTS: You will also receive a letter with your examination results in an easy to read format. ??If you have questions about your results, please contact your referring provider. Narrative 09/18/2022 3:00 PM CDT For Patients: As a result of the Century Cures Act, medical imaging exams and procedure reports are released immediately into your electronic medical record. You may view this report before your referring provider. If you have questions, please contact your health care provider. XR MAMMO BILAT SCREENING [[id number]] CLINICAL HISTORY: ??This is an asymptomatic 67 y.o. patient. INDICATION FOR EXAM: Mammogram Screening. TECHNIQUE: CC & MLO views were obtained. This study was evaluated with the assistance of Computer-Aided Detection. COMPARISON FILM: Yes 01/20/22 [facility] ?? FINDINGS: ??The breasts have scattered areas of fibroglandular density. There are no dominant masses, suspicious micro calcifications or areas of architectural distortion. Authorizing ProviderResult TypeResult StatusKathy Desai MDMAMMOFinal Result from Last 3 Months or Most Recently Relevant to Health Maintenance Insurance * Guarantor: Love Tang TypeRelation to PatientDate of BirthPhone Billing AddressPersonal/FfitdtFmvx94/10/1956 [address] [place] [address] * Guarantor: Love Tang TypeRelation to PatientDate of BirthPhone Billing AddressPersonal/GglofzHzfv60/10/1956 [address] [place] [address] * Guarantor: Love Tang TypeRelation to PatientDate of BirthPhone Billing AddressWorkers JnzcVfby49/10/1956 [address] [place] [address] [place] [address] Advance Directives * Full Code (Latest Code Status on File) Date ActivatedDate InactivatedComments08/15/2022 10:12 AM08/15/2022 6:25 PMPlease verify with the patient.QuestionAnswerCommentsCode Status Discussion:* Unable to Assess Preferences, Provider to review later Care Teams Team MemberRelationshipSpecialtyStart DateEnd Date Kathy Desai MD PCP - GeneralFamily Practice09/04/22
--- OUTSIDE RECORDS SUMMARY | 2025-06-19 13:37 | XMS_ITS | Encounter Summary ---
Author Organization [facility] Address [facility] [place] [address] Care Team Providers Care Phlebotomy Specialist Name Role Phone Sabine Kahn NP Primary Care Provider [phone] Sabine Kahn MECHANICAL MAINTENANCE INSTRUCTOR Unavailable [phone] Malgorzata Valero MECHANICAL MAINTENANCE INSTRUCTOR Unavailable [phone] Reason for Visit * ReasonOnset DateCommentsRefill Jgfkixh2206/04/2025 Encounter Details DateTypeDepartmentCare Team (Latest Contact Info)Iwnpreajfss20/04/2025Jasmyne Vargas [facility] [address] [facility] [address] [place] [phone] Malgorzata Valero NP [address] [address] Refill Request Social History Tobacco UseTypesPacks/DayYears UsedDateSmoking Tobacco: NeverSmokeless Tobacco: NeverAlcohol UseStandard Drinks/WeekCommentsYes0 (1 standard drink = 0.6 oz pure alcohol)1 / monthSocial Connection and Isolation PanelAnswerDate Recorded Frequency of Communication with Friends and FamilyNot on file10/02/2024How often do you get together with friends or relatives?Twice a week5Attends Quaker ServicesNot on file5Active Member of Clubs or Organizations Not on file10/02/2024ttends Club or Organization MeetingsNot on file10/02/2024 Marital StatusNot on file10/02/2024PHQ-2AnswerDate RecordedPHQ-2 Score2 10/03/2024[facility] [place] [facility] - Occupational Stress QuestionnaireAnswerDate RecordedDo you feel stress - tense, restless, nervous, or anxious, or unable to sleep at night because yourmind is troubled all the time - these days?Only a czhqqr3210/02/2024Exercise Vital SignAnswerDate Recorded On average, how many [...] in an abandoned building, in an overnight nursing home, or couch-surfing.)Yes10/02/2024re you worried about losing [...] ex-partner?No10/03/2024CommentsNoSex and Gender InformationValueDate RecordedSex Assigned at SzrdxVbikqk50/27/2021 3:47 PM CDTLegal XseEcwyua25/04/2012 4:22 AM CSTGender AuibmvbcYdtykd94/27/2021 3:47 PM CDTSexual EgqswkpptngWxedgczp63/21/2021 11:07 AM CDTdocumented as of this encounter Plan of Treatment DateTypeDepartmentCare Team (Latest Contact Info)Otlaledxrvu05/08/2026 9:30 AM CDTOffice Visit [address] [phone] Sabine Kahn NP [address] [place] [address] [place] [address] 02/19/2026 10:30 AM CDTLab [facility] [address] [place] [phone] 02/26/2026 11:30 AM CDTVirtual Visit [address] [phone] Malgorzata Valero NP [address] [place] [address] documented as of this encounter Visit Diagnoses Diagnosis Mild episode of recurrent major depressive disorder documented in this encounter Additional Health Concerns AssessmentNoted TimePHQ-9 Depression Total Score: 7:21 PM CDT documented as of this encounter Care Teams Team MemberRelationshipSpecialtyStart DateEnd Date Sabine Kahn NP [address] [place], [place] [address] [address] PCP - GeneralFamily Practice2 Sabine Kahn NP [address] [place], [place] [id number] Assigned PCP09/18/21 Malgorzata Valero NP [address] [address] Nurse PractitionerEndocrinology, Diabetes, and Metabolism02/27/25documented as of this encounter
[2025-06-19 13:51] VITALS: BP 113/66; PULSE 40; RESP 14; TEMP 35.9; O2SAT 99; BMI 19.8
[2025-06-19 14:00] VITALS: PULSE 42; RESP 15; O2SAT 99
[2025-06-19 14:05] VITALS: O2SAT 100
--- NOTE | 2025-06-19 14:05 | ED.GENADULT ---
HPI - General Adult General Chief complaint: Syncope/Fainted Stated complaint: General weakness Time Seen by Provider: 06/19/25 13:40 History of Present Illness HPI narrative: Patient is a 69-year-old woman who donated blood this morning. She went home afterwards and felt fine until approximate hour after getting home after she had eaten. At that point she developed lightheadedness and while talking to a neighbor did slump against the wall. Patient was helped to the floor and did not injure her head or neck. She had no seizure activity. She had no nausea no vomiting. She was brought in by EMS with a pulse of 40. She states this is normal for her and EKG shows sinus bradycardia. Patient now feels fine. Related Data Home Medications ?Medication ?Instructions ?Recorded ?Confirmed bupropion HCl 100 mg tablet,12 hr 100 mg PO BID 12/04/23 12/04/23 sustained-release escitalopram oxalate 20 mg tablet 20 mg PO DAILY 12/04/23 12/04/23 ibandronate 150 mg tablet 150 mg PO MONTHLY 12/04/23 12/04/23 levothyroxine 100 mcg tablet 100 mcg PO DAILY 12/04/23 12/04/23 liothyronine 5 mcg tablet 5 mcg PO BID 12/04/23 12/04/23 Previous Rx's ?Medication ?Instructions ?Recorded ondansetron 4 mg disintegrating 4 mg PO Q8H PRN nausea and 12/04/23 tablet vomiting #10 tabs Allergies Allergy/AdvReac Type Severity Reaction Status Date / Time No Known Drug Allergies Allergy Verified 12/04/23 08:56 Review of Systems Status of ROS: Reports: 10 or more systems reviewed and unremarkable except as noted in History and below PFSH PFS Social History Smoking Status: Never smoker How often do you have a drink containing alcohol: never AUDIT-C Alcohol total score: 0 Non-prescribed substance use: denies use Exam Narrative: Exam Narrative: EXAM GENERAL: Patient appears comfortable and well. EYES: No scleral icterus. LYMPH: No supraclavicular or cervical lymphadenopathy. SKIN: Visible skin seen during exam normal or with benign process only. EXT: No dependent lower extremity pedal edema. HEART: Regular rate and rhythm with no murmurs, rubs, or gallops. LUNGS: Clear to auscultation bilaterally with no crackles or wheezes. ABD: Soft, non tender, non distended. PSYCH: Good eye contact, speech is not pressured. Const: Vital Signs, click to edit/add: Vital Signs - 24 hr 06/19/25 13:51 06/19/25 14:00 06/19/25 14:05 Temperature 96.7 F L Pulse Rate 42 L Pulse Rate [Right Pulse Oximeter] 40 L Respiratory Rate 14 15 Blood Pressure Blood Pressure [Ri ght Upper Arm] 113/66 Pulse Oximetry 99 99 100 Oxygen Delivery Me thod Room Air 06/19/25 14:19 06/19/25 14:32 Temperature Pulse Rate 41 L 44 L Pulse Rate [Right Pulse Oximeter] Respiratory Rate 19 12 Blood Pressure 104/57 L 109/65 Blood Pressure [Ri ght Upper Arm] Pulse Oximetry 100 99 Oxygen Delivery Me thod Course Course ED Course: Patient seen and examined. She is asymptomatic. Will do CBC comprehensive metabolic panel troponin. I did review her chest x-ray. I did give her a 500 mL saline bolus. 500 mL saline boluses. Vital Signs Vital signs: Initial Vital Signs Temperature 96.7 F L 06/19/25 13:51 Temperature Source Temporal Artery Scan 06/19/25 13:51 Pulse Rate 40 L 06/19/25 13:51 Respiratory Rate 14 06/19/25 13:51 Blood Pressure 113/66 06/19/25 13:51 Blood Pressure Mean 81 06/19/25 13:51 Blood Pressure Position Sitting 06/19/25 13:51 Pulse Oximetry 99 06/19/25 13:51 Oxygen Delivery Method Room Air 06/19/25 13:51 Vital Signs Temperature 96.7 F L 06/19/25 13:51 Pulse Rate 40 L 06/19/25 13:51 Respiratory Rate 14 06/19/25 13:51 Blood Pressure 113/66 06/19/25 13:51 Pulse Oximetry 99 06/19/25 13:51 Oxygen Delivery Method Room Air 06/19/25 13:51 Temperature 96.7 F L 06/19/25 13:51 Pulse Rate 44 L 06/19/25 14:32 Respiratory Rate 12 06/19/25 14:32 Blood Pressure 109/65 06/19/25 14:32 Pulse Oximetry 99 06/19/25 14:32 Oxygen Delivery Method Room Air 06/19/25 13:51 Medications Administered Medications: Discontinued Medications Generic Name Dose Route Start Last Admin Trade Name Andersq PRN Reason Stop Dose Admin Sodium Chloride 500 mls @ 500 mls/hr 06/19/25 14:01 06/19/25 14:16 0.9 % Sodium Chloride 500 Ml IV 06/19/25 15:00 500 mls/hr .Q1H KENDELL Administration Medical Decision Making MDM Narrative Medical decision making narrative: Patient presents with a presyncopal event after donating blood. Her labs look reasonable. Her troponin is negative EKG shows sinus bradycardia. Is not a new finding for the patient. Patient feels well like to discharged home. She has no neurologic symptoms is back to baseline. I did encourage her to follow-up with her primary physician to discuss her bradycardia. Lab Data Labs: Lab Results 06/19/25 Range/Units 14:15 WBC 6.04 (4.50-11.00) K/uL RBC 3.95 L (4.00-5.20) m/uL Hgb 13.0 (12.0-16.0) gm/dL Hct 40.7 (33.0-51.0) % MCV 103 H (80-100) fL MCH 33 (26-34) pg MCHC 32 (32-36) gm/dL RDW Coeff of [place] 12.5 (11.5-15.5) % Plt Count 206 (140-440) K/uL Neut % (Auto) 70.4 (42.0-72.0) % Lymph % (Auto) 17.5 L (20-44) % [place] % (Auto) 9.6 (0.0-11.0) % Eos % (Auto) 2.0 (0.0-7.0) % Baso % (Auto) 0.5 (0.0-3.0) % Neut # (Auto) 4.25 (1.7-7.0) K/uL Lymph # (Auto) 1.10 (0.90-2.90) K/uL [place] # (Auto) 0.60 (0.00-0.90) K/UL Eos # (Auto) 0.12 (0.00-0.50) K/uL Baso # (Auto) 0.03 (0.00-0.30) K/uL Abs Immat Gran (auto) 0.00 (0.00-0.30) K/uL Imm/Tot Granulo (auto) 0.0 % Sodium 134 L (135-149) mmol/L Potassium 4.3 (3.6-5.1) mmol/L Chloride 101 (96-114) mmol/L Carbon Dioxide 28 (20-32) mmol/L Anion Gap 5 L (7-15) mEq/L BUN 17 (7-30) mg/dL Creatinine 0.8 (0.5-1.5) mg/dL Estimated Creat Clear 41.98 Estimated GFR 79 ml/min Glucose 107 (60-115) mg/dL Calcium 8.6 (8.4-10.6) mg/dL Total Bilirubin 0.4 (0.1-1.5) mg/dL AST 33 (12-35) U/L ALT 29 (4-35) U/L Alkaline Phosphatase 42 (40-150) U/L POC Troponin I High Sensi < 2.9 L (2.9-13.0) pg/mL Total Protein 6.0 (6.0-8.3) g/dL Albumin 3.8 (3.3-5.0) g/dL Discharge Plan Discharge Clinical Impression: Vasovagal syncope Patient Disposition: Home, Self-Care Condition: Stable Instructions: Syncope (ED) Additional Instructions: resume previous medications. And advance diet activity as tolerated. Follow-up with your doctor next week to discuss some relative slow heart rate. Activity Level: No Restrictions Discharge Diet: Regular Prescriptions: No Action levothyroxine 100 mcg tablet 100 mcg PO DAILY liothyronine 5 mcg tablet 5 mcg PO BID ibandronate 150 mg tablet 150 mg PO MONTHLY bupropion HCl 100 mg tablet sustained-release 12 hr 100 mg PO BID escitalopram oxalate 20 mg tablet 20 mg PO DAILY ondansetron 4 mg tablet,disintegrating 4 mg PO Q8H PRN (Reason: nausea and vomiting) Qty: 10 0RF Follow Up/Referrals: Provider,Not a Local [Primary Care Provider, Family Practice] Stand Alone Forms: Cloud[employer]h Info Instructions
[2025-06-19] MEDS: 0.9 % SODIUM CHLORIDE 500 ML 500 ML IV (14:16)
[2025-06-19 14:19] VITALS: BP 104/57; PULSE 41; RESP 19; O2SAT 100
[2025-06-19 14:32] VITALS: BP 109/65; PULSE 44; RESP 12; O2SAT 99
[2025-06-19 14:39] LABS: Hematocrit* 40.7 % (33.0-51.0); Hemoglobin* 13.0 gm/dL (12.0-16.0); Immature Granulocytes Abs Auto 0.00 K/uL (0.00-0.30); Immature Granulocytes Pct Auto 0.0 %; Mean Corpuscular HGB Conc 32 gm/dL (32-36); Mean Corpuscular Hemoglobin 33 pg (26-34); Mean Corpuscular Volume 103 fL (80-100); RDW Coefficient of Variation % 12.5 % (11.5-15.5); Red Blood Count* 3.95 m/uL (4.00-5.20); White Blood Count* 6.04 K/uL (4.50-11.00)
[2025-06-19 14:46] LABS: Lymphocytes Absolute Auto 1.10 K/uL (0.90-2.90); Slide Review Reflex No
[2025-06-19 14:51] LABS: Albumin* 3.8 g/dL (3.3-5.0); Chloride* 101 mmol/L (96-114); Potassium* 4.3 mmol/L (3.6-5.1); Sodium* 134 mmol/L (135-149)
[2025-06-19 14:54] LABS: Alanine Aminotransferase* 29 U/L (4-35); Alkaline Phosphatase* 42 U/L (40-150); Anion Gap 5 mEq/L (7-15); Aspartate Amino Transferase* 33 U/L (12-35); Bilirubin Total* 0.4 mg/dL (0.1-1.5); Blood Urea Nitrogen* 17 mg/dL (7-30); Calcium* 8.6 mg/dL (8.4-10.6); Carbon Dioxide* 28 mmol/L (20-32); Creatinine* 0.8 mg/dL (0.5-1.5); Est. Creatinine Clearance* 41.98; Estimated Glomerular Filt Rate 79 ml/min; Glucose* 107 mg/dL (60-115); Total Protein* 6.0 g/dL (6.0-8.3)
[2025-06-19 15:02] VITALS: BP 105/53; PULSE 42; RESP 12; O2SAT 99
== END 2025-06-19 15:28 | disposition home or self-care (01) ==
PROVIDERS: Emergency Provider Internal Medicine
DX: R55 Syncope and collapse (principal)
CPT/HCPCS: 36415; 80053; 84484; 85025; 94761; 96360; 99283; 99284; J7030